=== PATIENT | female | born 1980 | race Caucasian/White ===

== ENCOUNTER 2021-11-23 23:58 | Emergency (ER) | payer OTHER, SELFPAY ==
[2021-11-24 00:49] VITALS: BP 110/64; PULSE 75; RESP 16; TEMP 37; O2SAT 99; BMI 19.5
== END 2021-11-24 01:20 | disposition left against medical advice (07) ==
PROVIDERS: Emergency Provider Emergency Medicine; PCP Nurse Practitioner Family
DX: R55 Syncope and collapse (principal); S09.90XA Unspecified injury of head, initial encounter; X58.XXXA Exposure to other specified factors, initial encounter; Y93.9 Activity, unspecified; Y92.9 Unspecified place or not applicable; Y99.9 Unspecified external cause status
CPT/HCPCS: 99281; 99282